=== PATIENT | male | born 1990 | race Hispanic/Latino ===

== ENCOUNTER 2024-11-27 00:33 | Emergency (ER) | payer SELFPAY ==
[2024-11-27] MEDS ORDERED: Lidocaine 1% PF 5 ML VIAL ONE (02:10)
[2024-11-27] MEDS ORDERED: Bacitracin 1 PK ONE (03:50)
== END 2024-11-27 04:20 | disposition home or self-care (01) ==
LOC: ERS 00:33
DX: S61.212A Laceration without foreign body of right middle finger without damage to nail, initial encounter (principal); Z23 Encounter for immunization; W20.8XXA Other cause of strike by thrown, projected or falling object, initial encounter
CPT/HCPCS: 12001; 99282